=== PATIENT | female | born 1955 | race Caucasian/White ===

== ENCOUNTER 2024-01-24 07:09 | Outpatient (CLI) | payer OTHER | END 2024-01-24 21:16 | disposition home or self-care (01) | LOC: SNM 07:09 | PROVIDERS: ATTEND Student in an Organized Health Care Education/Training Program | DX: M15.9 Polyosteoarthritis, unspecified (principal); M89.8X9 Other specified disorders of bone, unspecified site | CPT/HCPCS: 78306; A9503 ==